=== PATIENT | male | born 1960 ===

== ENCOUNTER 2020-12-31 16:02 | Observation (INO) | payer MEDICAID, OTHER ==
[~2020-12-31] VITALS: Ht 190.5 cm; Wt 114.9 kg
--- OUTSIDE RECORDS SUMMARY | 2020-12-31 22:10 | XMS REPORT | Clinical Summary ---
Author Author [facility] Organization [facility] Address Unknown Phone Unavailable Care Team Providers Care Medical Operations Supervisor Name Role Phone Brock Mulligan MD PCP Allergies Comments Active Allergy Reactions Severity Noted Date Bee Pollens Anaphylaxis High 02/24/2020 Patient does not remember Gabapentin Other (See 02/24/2020 Comments) Ziprasidone Hcl Other (See 02/24/2020 Comments) Penicillins Hives, Fever 02/24/2020 Risperidone Other (See 02/24/2020 Comments) Sulfa (Sulfonamide Hot Flashes 02/24/2020 Antibiotics) Wasp Venom Anaphylaxis High 02/24/2020 Medications End Date Status Medication Sig Dispensed Refills Start Date Active nitroglycerin (NITROSTAT) Dissolve 0.4 0 0.4 MG SL tablet mg under the tongue every 5 (five) minutes as needed for chest pain. May repeat for a total of 3 doses. Active tiotropium-olodateroL Inhale 2 0 2.5-2.5 mcg/actuation puffs daily. Mist Active rosuvastatin (CRESTOR) 20 Take 20 mg by 0 MG tablet mouth daily. Active lisinopriL Take 10 mg by 0 (PRINIVIL,ZESTRIL) 10 MG mouth daily. tablet Active albuterol (PROAIR HFA) 90 Inhale 2 0 mcg/actuation HFA inhaler puffs every 6 (six) hours as needed for wheezing. Active traMADoL (ULTRAM) 50 mg Take 50 mg by 0 tablet mouth every 6 (six) hours as needed for pain. Active montelukast (SINGULAIR) Take 10 mg by 0 10 mg tablet mouth nightly. Active lamoTRIgine (LAMICTAL) 25 Take 100 mg 0 MG tablet by mouth daily. Active aspirin 81 MG EC tablet Take 1 tablet 1 tablet 0 (81 mg total) 1 by mouth daily. Active apixaban (ELIQUIS) 5 mg Take 1 tablet 180 tablet 1 tablet (5 mg total) 1 by mouth 2 (two) times a day. Active Problems Problem Noted Date Prediabetes 02/25/2020 Last Assessment & Plan: Formatting of this note might be differ ent from the original. Hemoglobin A1c 5.7. Lifestyle modification. Blood glucose well controlled. Repeat hemoglobin A1c in 6 months Chest pain 02/24/2020 Last Assessment & Plan: Formatting of this note might be differ ent from the original. Chest pain that improved with nitro, mu ltiple risk factors - Continue with aspirin, Plavix, BB, st atin. -Cardiology plan for cardiac cath today -Echo done ejection fraction of 60%. R ight proximal septal hypertrophy. Normal right medical size and systolic function. No significant valve abnormalities. -Continue with heparin gtt. COPD (chronic obstructive pulmonary disease) 021 Last Assessment & Plan: Formatting of this note might be differ ent from the original. No acute exacerbation PAF (paroxysmal atrial fibrillation) 02/24/2020 Last Assessment & Plan: Formatting of this note might be differ ent from the original. PAF recently diagnosed within the last couple of weeks normal sinus rhythm. TSH normal Resume metoprolol. Tobacco use 02/24/2020 Last Assessment & Plan: Formatting of this note might be differ ent from the original. Current everyday smoker Tobacco cessation Hyperlipidemia 02/24/2020 Last Assessment & Plan: Formatting of this note might be differ ent from the original. Lipitor LDL 112, goal less than 70 Bipolar disorder 02/24/2020 Last Assessment & Plan: Formatting of this note might be differ ent from the original. Chronic, stable Continue home lamictal History of CVA (cerebrovascular accident) 02/24/2020 Last Assessment & Plan: Formatting of this note might be differ ent from the original. Hx of CVA 3 weeks ago. On Plavix will continue with that. Continue with statin. Essential hypertension 02/24/2020 Last Assessment & Plan: Formatting of this note might be differ ent from the original. Blood pressure stable. Continue with l isinopril and metoprolol Hemiparesis affecting dominant side as late effect of stroke 02/24/2020 Resolved Problems Problem Noted Date Resolved Date Unstable angina 02/24/2020 02/26/2020 Family History Medical History Relation Name Comments Coronary artery bypass Father graft Heart disease Father Stroke Mother Relation Name Status Comments Father Mother Social History Date Tobacco Use Types Packs/Day Years Used Current Every Day Smoker Smokeless Tobacco: Never Used Comments: started approx. 40 years ago Comments Alcohol Use Standard Drinks/Week 1-2 x per year Yes 0 (1 standard drink = 0.6 o z pure alcohol) Alcohol Habits Answer Date Recorded How often do you have a drink containing alcohol? No t asked How many drinks containing alcohol do you have on No t asked a typical day when you are drinking? How often do you have six or more drinks on one Not asked occasion? Comment: 1-2 x per year 02/24/2020 Sex Assigned at Date Recorded Not on file Last Filed Vital Signs Reading Time Taken Comments Vital Sign 133/74 02/26/2020 4:30 PM FILER REPAIRER Blood Pressure 66 02/26/2020 4:30 PM FILER REPAIRER Pulse 36.4 C (97.5 F) 02/26/2020 3:14 PM FILER REPAIRER Temperature 21 02/26/2020 3:14 PM FILER REPAIRER Respiratory Rate 97% 02/26/2020 4:30 PM FILER REPAIRER Oxygen Saturation - - Inhaled Oxygen Concentration 110.2 kg (243 lb) 02/26/2020 10:22 AM FILER REPAIRER Weight 190.5 cm (6' 3") 02/26/2020 10:22 AM FILER REPAIRER Height 30.37 02/26/2020 10:22 AM FILER REPAIRER Body Mass Index Plan of Treatment Health Maintenance Due Date Last Done Comments Hepatitis C Screen 1960 Spirometry # 1960 Td/Tdap# 1962 Tobacco Cessation 1962 Counseling # Pneumococcal Vaccine: 1968 Pediatrics (0 to 5 Years) and At-Risk Patients (6 to 64 Years) (1 of 2 - PPSV23) COVID-19 Vaccine (1) 1974 Colorectal Screening via 2012 Colonoscopy Zoster Vaccine# (1 of 2) 2012 Influenza Vaccine (#1) 2020 Implants Device Identifier Shelf Expiration Date Model / Serial / [place] [id number] / / Closure Device Perclose Proglide - Non-Tissue ABB MICHELLE [id number] Implant VASCULAR Implanted: Qty: 1 on 02/26/2020 by Caleb Sanchez MD at [facility] Results Not on filefrom Last 3 Months Insurance Type Payer Benefit Subscriber ID Effective Phone Address Plan / Dates Group MEDICAID (MD) [place] [id number] 2020- [phone] PO [place] [employer] Present [id number] [place] [address] Advance Directives For more information, please contact: [phone] Patient Receipt And Report Clerk Explanation Type Date Recorded Health Care Directive Date Inactivated Comments Code Status Date Activated 02/26/2020 8:01 PM Full Code 02/26/2020 11:10 AM 02/26/2020 11:10 AM DNR 02/24/2020 4:29 AM 02/24/2020 4:28 AM Full Code 02/24/2020 3:08 AM Care Teams Start Date End Date Medical Operations Supervisor Relationship Specialty 02/24/20 Brock Mulligan MD PCP - General Family [address] [place] [id number]
[2020-12-31] MEDS ORDERED: ONDANSETRON 4 MG (ZOFRAN) ORAL DISSOLVE TAB PO PRN (22:15)
[2020-12-31] MEDS ORDERED: hydrALAZINE (APESOLINE) 20 MG/ML VIAL IV PRN (22:15)
[2020-12-31] MEDS ORDERED: ANTACID SUSP 30 ML UDC (MYLANTA) PO PRN (22:15)
[2020-12-31] MEDS ORDERED: diphenhydrAMINE 25 MG TAB (BENADRYL) PO PRN (22:15)
[2020-12-31] MEDS ORDERED: NITROGLYCERIN 0.4 MG SL TABS BTL 25'S SL PRN (22:15)
[2020-12-31] MEDS ORDERED: polyethylene glycoL POWDER 17 GM (MIRALAX) PACK PO PRN (22:15)
[2020-12-31] MEDS ORDERED: MELATONIN 3 MG TABLET PO PRN (22:15)
[2020-12-31] MEDS ORDERED: ONDANSETRON 4 MG/2 ML (SDV) Z0FRAN IV PRN (22:15)
[2021-01-01 05:16] LABS: BASOPHILS % (AUTO) 0 % (0-10); EOSINOPHILS # (AUTO) 0.1 10^3/uL (0.0-0.3); EOSINOPHILS % (AUTO) 2 % (0-10); HEMATOCRIT 43 % (40-54); HEMOGLOBIN 14.8 g/dL (13.3-17.7); LYMPHOCYTES # (AUTO) 2.5 10^3/uL (1.0-4.0); LYMPHOCYTES % (AUTO) 35 % (12-44); MEAN CORPUSCULAR HEMOGLOBIN 32 pg (25-34); MEAN CORPUSCULAR HGB CONC 34 g/dL (32-36); MEAN CORPUSCULAR VOLUME 93 fL (80-99); MEAN PLATELET VOLUME 10.3 fL (9.0-12.2); MONOCYTES # (AUTO) 0.6 10^3/uL (0.0-1.0); MONOCYTES % (AUTO) 9 % (0-12); NEUTROPHILS # (AUTO) 3.7 10^3/uL (1.8-7.8); NEUTROPHILS % (AUTO) 53 % (42-75); PLATELET COUNT 163 10^3/uL (130-400)
[2021-01-01 05:34] LABS: CHLORIDE 108 MMOL/L (98-107); POTASSIUM 3.8 MMOL/L (3.6-5.0); SODIUM 138 MMOL/L (135-145)
[2021-01-01 05:35] LABS: CALCIUM 8.7 MG/DL (8.5-10.1)
[2021-01-01 05:36] LABS: GLUCOSE 128 MG/DL (70-105); TRIGLYCERIDES 246 MG/DL (<150); VLDL CHOLESTEROL 49 MG/DL (5-40)
[2021-01-01 05:37] LABS: CARBON DIOXIDE 20 MMOL/L (21-32)
[2021-01-01 05:39] LABS: CREATININE SERUM 1.04 MG/DL (0.60-1.30); GFR ESTIMATED 73
[2021-01-01 05:41] LABS: BUN/CREATININE RATIO 11; CHOLESTEROL 211 MG/DL (< 200)
[2021-01-01 05:42] LABS: HDL CHOLESTEROL 29 MG/DL (40-60)
[2021-01-01] MEDS ORDERED: FLUTICASONE/VILANTEROL 100 MCG 14'S (BREO) IH SCH (08:00)
--- NOTE | 2021-01-01 08:46 | Consultation-Cardiology ---
HPI-Cardiology Cardiology Consultation Date of Consultation 01/01/21 Date of Admission Time Seen by Provider: 08:42 Indication: Chest pain HPI 60 years old gentleman with history of hypertension, hyperlipidemia, multiple TIAs in the past. Reported episode of chest tightness in the retrosternal area, reported that he has severe hypertension with blood pressure around 180/110. Had some numbness in his left arm and blurry vision. Resolved after going to the emergency room and receiving sublingual nitroglycerin. His blood pressure has been stable. He is feeling better. Denied any chest pain or shortness of breath at this time. Reported that he had a normal cardiac catheterization with at [facility] in May 2020. Home Medications & Allergies Allergies: Coded Allergies: No Allergy Information Available (Unverified , 12/31/20) Home Medication List Reviewed: No Patient did not have his medication list with him [id number] Hx Patient Social History Smoking Status: Current Everyday Smoker Have you traveled recently?: No Alcohol Use?: No Past Medical History Discussed below Family Medical History Family Medical Hx Noncontributory Review of Systems-General Review of Systems Constitutional: no symptoms reported, see HPI, malaise EENTM: see HPI, no symptoms reported Respiratory: see HPI; No cough, No dyspnea on exertion, No hemoptysis, No orthopnea, No phlegm, No short of breath, No stridor, No wheezing, No other Cardiovascular: see HPI, chest pain; No edema, No Hx of Intervention, No palpitations, No syncope, No vascular heart diseas, No other Gastrointestinal: no symptoms reported, see HPI Genitourinary: no symptoms reported, see HPI Musculoskeletal: see HPI, joint pain Skin: no symptoms reported, see HPI Psychiatric/Neurological: No Symptoms Reported, See HPI Reviewed Test Results Reviewed Test Results Lab Laboratory Tests Test 12/31/20 22:19 01/01/21 04:58 Range/Units Troponin I < 0.028 < 0.028 <0.028 NG/ML White Blood Count 7.0 4.3-11.0 10^3/uL Red Blood Count 4.64 4.30-5.52 10^6/uL Hemoglobin 14.8 13.3-17.7 g/dL Hematocrit 43 40-54 % Mean Corpuscular Volume 93 80-99 fL Mean Corpuscular Hemoglobin 32 25-34 pg Mean Corpuscular Hemoglobin Concent 34 32-36 g/dL Red Cell Distribution Width 13.5 10.0-14.5 % Platelet Count 163 130-400 10^3/uL Mean Platelet Volume 10.3 9.0-12.2 fL Immature Granulocyte % (Auto) 0 % Neutrophils (%) (Auto) 53 42-75 % Lymphocytes (%) (Auto) 35 12-44 % Monocytes (%) (Auto) 9 0-12 % Eosinophils (%) (Auto) 2 0-10 % Basophils (%) (Auto) 0 0-10 % Neutrophils # (Auto) 3.7 1.8-7.8 10^3/uL Lymphocytes # (Auto) 2.5 1.0-4.0 10^3/uL Monocytes # (Auto) 0.6 0.0-1.0 10^3/uL Eosinophils # (Auto) 0.1 0.0-0.3 10^3/uL Basophils # (Auto) 0.0 0.0-0.1 10^3/uL Immature Granulocyte # (Auto) 0.0 0.0-0.1 10^3/uL Sodium Level 138 135-145 MMOL/L Potassium Level 3.8 3.6-5.0 MMOL/L Chloride Level 108 H 98-107 MMOL/L Carbon Dioxide Level 20 L 21-32 MMOL/L Anion Gap 10 5-14 MMOL/L Blood Urea Nitrogen 11 7-18 MG/DL Creatinine 1.04 0.60-1.30 MG/DL Estimat Glomerular Filtration Rate 73 BUN/Creatinine Ratio 11 Glucose Level 128 H 70-105 MG/DL Calcium Level 8.7 8.5-10.1 MG/DL Triglycerides Level 246 H <150 MG/DL Cholesterol Level 211 H < 200 MG/DL LDL Cholesterol Direct 161 H 1-129 MG/DL VLDL Cholesterol 49 H 5-40 MG/DL HDL Cholesterol 29 L 40-60 MG/DL Physical Exam Physical Exam Vital Signs Vital Signs - First Documented Capillary Refill : Less Than 3 Seconds Height, Weight, BMI Height: '" Weight: lbs. oz. kg; 31.66 BMI Method: General Appearance: No Apparent Distress, WD/WN Eyes: Bilateral Eye Normal Inspection, Bilateral Eye PERRL, Bilateral Eye EOMI HEENT: PERRL/EOMI, TMs Normal, Normal ENT Inspection, Pharynx Normal, Moist Mucous Membranes Neck: Full Range of Motion, Normal Inspection, Non Tender, Supple, Carotid Bruit Respiratory: Chest Non Tender, Normal Breath Sounds, No Accessory Muscle Use, No Respiratory Distress Cardiovascular: Regular Rate, Rhythm, No Edema, No Gallop, No JVD, No Murmur, Normal Peripheral Pulses Gastrointestinal: Normal Bowel Sounds, No Organomegaly, No Pulsatile Mass, Non Tender, Soft Back: Normal Inspection, No CVA Tenderness, No Vertebral Tenderness Extremity: Normal Capillary Refill, Normal Inspection, Normal Range of Motion, Non Tender, No Calf Tenderness, No Pedal Edema Neurologic/Psychiatric: Alert, Oriented x3, No Motor/Sensory Deficits, Normal Mood/Affect Skin: Normal Color, Warm/Dry Lymphatic: No Adenopathy A/P-Cardiology Assessment/Plan Chest pain nonspecific etiology, resolved, cardiac enzymes are negative. Patient reporting normal cardiac catheterization in May [address] [facility]. Probably secondary to elevated blood pressure, blood pressure is better at this point. Recommend restarting home medication and follow-up with his primary relationship advisor Hypertensive urgency, labile blood pressure Better control at this time. Continue to monitor blood pressure and restart home medication Follow-up with his primary relationship advisor. Paroxysmal atrial fibrillation, currently in sinus rhythm, maintained on Eliquis as an outpatient. Restart Eliquis and restart home medication. Follow-up with his primary relationship advisor Hyperlipidemia, resume statin and monitor Questionable history of LVH, patient reporting that had history of enlarged heart. No signs of congestive heart failure. History of recurrent TIA. YASSINE LEON MD Jan 01, 2021 08:46
[2021-01-01] MEDS ORDERED: ASPIRIN 81 MG CHEW (CHILDREN'S ASA) PO SCH (09:00)
[2021-01-01] MEDS ORDERED: PANTOPRAZOLE 20 MG TABLET (PROTONIX) PO SCH (09:00)
[2021-01-01] MEDS ORDERED: AMIODARONE 200 MG (CORDARONE) TAB PO SCH (09:00)
[2021-01-01] MEDS ORDERED: ENOXAPARIN 40 MG/0.4 ML (LOVENOX) SYR SC SCH (09:00)
[2021-01-01] MEDS ORDERED: APIXABAN 5 MG (ELIQUIS) TABLET PO SCH (09:00)
[2021-01-01] MEDS ORDERED: lisINopril 40 MG (PRINIVIL) TABLET PO SCH (09:00)
[2021-01-01] MEDS ORDERED: APIX5TAB PO (09:32)
[2021-01-01] MEDS ORDERED: UMEC1BLS IH (09:32)
[2021-01-01] MEDS ORDERED: RT-ALBUINH IH (09:32)
[2021-01-01] MEDS ORDERED: LAMO100T5 PO (09:32)
[2021-01-01] MEDS ORDERED: LISI40TA9 PO (09:32)
[2021-01-01] MEDS ORDERED: ROSU20TA32 PO (09:32)
[2021-01-01] MEDS ORDERED: AMIO200T65 PO (09:32)
[2021-01-01] MEDS ORDERED: ASPI81TA64 PO (09:32)
[2021-01-01] MEDS ORDERED: OMEP-401 PO (09:32)
--- NOTE | 2021-01-01 11:25 | Discharge Summary ---
Discharge Summary Hospital Course Problems/Dx: (1) Chest pain Status: Acute Hospital Course Date of Admission: Dec 31, 2020 at 22:02 Admission Diagnosis: Chest pain Family Physician/Provider: [facility] Physician Date of Discharge: 01/01/21 Discharge Diagnosis: Chest pain Hospital Course: Lionel Moura is a 60 year old with PMH HTN, HLD, GERD, AFib, COPD, obesity, who presented with chest pain. His EKG and troponins were normal. He follows with Dr. Naidu, cardiology, in [place]. Dr. Ye, cardiology, was consulted and assisted with his care. He underwent a left heart catheterization about 6 months ago which was reportedly normal. He also had hypertensive urgency which resolved. He was continued on his home medications. His symptoms resolved and he was discharged home in stable condition. He should follow up with his auto wheel alignment specialist and PCP. Labs and Pending Lab Test: Laboratory Tests 12/31/20 22:19: Troponin I < 0.028 01/01/21 04:58: Troponin I < 0.028, White Blood Count 7.0, Red Blood Count 4.64, Hemoglobin 14.8, Hematocrit 43, Mean Corpuscular Volume 93, Mean Corpuscular Hemoglobin 32, Mean Corpuscular Hemoglobin Concent 34, Red Cell Distribution Width 13.5, Platelet Count 163, Mean Platelet Volume 10.3, Immature Granulocyte % (Auto) 0, Neutrophils (%) (Auto) 53, Lymphocytes (%) (Auto) 35, Monocytes (%) (Auto) 9, Eosinophils (%) (Auto) 2, Basophils (%) (Auto) 0, Neutrophils # (Auto) 3.7, Lymphocytes # (Auto) 2.5, Monocytes # (Auto) 0.6, Eosinophils # (Auto) 0.1, Basophils # (Auto) 0.0, Immature Granulocyte # (Auto) 0.0, Sodium Level 138, Potassium Level 3.8, Chloride Level 108H, Carbon Dioxide Level 20L, Anion Gap 10, Blood Urea Nitrogen 11, Creatinine 1.04, Estimat Glomerular Filtration Rate 73, BUN/Creatinine Ratio 11, Glucose Level 128H, Calcium Level 8.7, Triglycerides Level 246H, Cholesterol Level 211H, LDL Cholesterol Direct 161H, VLDL Cholesterol 49H, HDL Cholesterol 29L Home Meds Active Proair Hfa (Albuterol Sulfate) 1 Puff Puff 2 Puff IH Q4H PRN 30 Days 1 PUFF = 90 MCG Anoro Ellipta 62.5-25 Mcg INH (Umeclidinium Brm/Vilanterol Tr) 1 Each Blst.w.dev 1 Each IH DAILY 30 Days Omeprazole 20 Mg Tab.rap.dr 20 Mg PO DAILY 30 Days Lamotrigine 100 Mg Tablet 100 Mg PO DAILY 30 Days Children's Aspirin (Aspirin) 81 Mg Tab.chew 81 Mg PO DAILY 30 Days Lisinopril 40 Mg Tablet 10 Mg PO DAILY 30 Days Rosuvastatin Calcium 20 Mg Tablet 40 Mg PO HS 30 Days Amiodarone HCl 200 Mg Tablet 200 Mg PO DAILY 30 Days Eliquis (Apixaban) 5 Mg Tablet 5 Mg PO BID 30 Days Assessment/Pt Instructions Take medications as prescribed. Follow up with Dr. Naidu. Return with worsening chest pain or if you feel like you are getting worse. Discharge Planning: <30 minutes discharge planning Discharge Instructions Discharge Diet: Low Sodium Diet Activity as Tolerated: Yes Consultations Cardiology Discharge Physical Examination Vital Signs Vital Signs Date Time Temp Pulse Resp B/P (MAP) Pulse Ox O2 Delivery O2 Flow Rate FiO2 01/01/21 09:12 98 Room Air 01/01/21 07:39 36.0 62 20 115/61 General Appearance: No Apparent Distress, Obese Respiratory: Lungs Clear, Normal Breath Sounds, No Respiratory Distress Cardiovascular: Regular Rate, Rhythm, No Edema, No Murmur Gastrointestinal: Normal Bowel Sounds, Non Tender, Soft Extremity: Normal Inspection, Non Tender, No Pedal Edema Skin: Normal Color, Warm/Dry Neurologic/Psychiatric: Alert, Oriented x3, No Motor/Sensory Deficits, Normal Mood/Affect Allergies: Coded Allergies: No Allergy Information Available (Unverified , 12/31/20) Discharge Summary Date of Admission Dec 31, 2020 at 22:02 Date of Discharge Discharge Date: Jan 01, 2021 Discharge Time: 1100 Admission Diagnosis Chest pain Consults/Procedures Consulations Cardiology Discharge Diagnosis (1) Chest pain Status: Acute (2) Hypertensive urgency Status: Acute (3) HTN (hypertension) Status: Chronic (4) HLD (hyperlipidemia) Status: Chronic (5) GERD (gastroesophageal reflux disease) Status: Chronic (6) Afib Status: Chronic (7) COPD (chronic obstructive pulmonary disease) Status: Chronic (8) Tobacco abuse Status: Chronic (9) Obesity Status: Chronic CAITY DEL ROSARIO MD Jan 01, 2021 11:24
[2021-01-01] MEDS ORDERED: ROSUVASTATIN 20 MG (CRESTOR) TABLET PO SCH (21:00)
[2021-01-02] MEDS ORDERED: RT--FLUTICASONE/SALMETEROL 113-14 (AIRDUO RespiCLICK) IH SCH (08:00)
== END 2021-01-01 11:33 | disposition home or self-care (01) ==
LOC: CSD 22:02
PROVIDERS: ADMIT Internal Medicine; ATTEND Internal Medicine
DX: R07.9 Chest pain, unspecified (principal); I10 Essential (primary) hypertension; E78.5 Hyperlipidemia, unspecified; K21.9 Gastro-esophageal reflux disease without esophagitis; J44.9 Chronic obstructive pulmonary disease, unspecified; E66.9 Obesity, unspecified; I16.0 Hypertensive urgency; I48.0 Paroxysmal atrial fibrillation; F17.200 Nicotine dependence, unspecified, uncomplicated; Z86.73 Personal history of transient ischemic attack (TIA), and cerebral infarction without residual deficits; Z79.01 Long term (current) use of anticoagulants; Z68.31 Body mass index [BMI] 31.0-31.9, adult; Z79.899 Other long term (current) drug therapy
CPT/HCPCS: 36415; 80048; 80061; 84484; 85025; 93306; 94640